=== PATIENT | female | born 1975 | race Caucasian/White ===

== ENCOUNTER 2018-01-11 16:38 | Emergency (ER) | payer OTHER ==
--- OUTSIDE RECORDS SUMMARY | 2018-01-11 16:44 | XMS REPORT ---
:1975 External Reference #:[id number] Author Organization [employer] Address [address] [facility] [place] [address] [place] [address] Phone [phone] Care Team Providers Name Role Phone Priscilla Rose MD Primary Care Physician Unavailable Payers Type Date Identification Numbers Payment Provider Subscriber Commercial Effective: Policy Number: [employer]CP[employer] Radha White 2011 [id number] Group Number: [id number] [address] PayID: [id number] [place] [address] Medigap Part B Expires: 2011 Policy Number: [employer] Insurance Radha Sánchez [id number] Kat PayID: [id number] [address] [place] [address] Problems Date Description Provider Status Onset: 01/13/2016 Anxiety state Delphine Washington M.D. Active Family History Date Family Member(s) Problem(s) Comments Father Tachycardia Father 81 Father Hypertension Father Diabetes Type II Mother Atrial Fibrillation Mother 72 Mother Fibromyalgia Mother Arthritis Mother Hypertension First Sister 39 Social History Type Date Description Comments Marital Status Lives With Spouse Occupation Human Resources ETOH Use Occasionally consumes alcohol Smoking Patient has never smoked Allergies, Adverse Reactions, Alerts Date Description Reaction Status Severity Comments 04/05/2017 NKDA active Medications Medication Date Status Form Strength Qnty SIG Indications Ordering Provider B12 10/31 Active once daily Varn, N.P. Tumeric /25 Active Tablets 1 by mouth daily Varn, N.P. Biotin 09/13 Active Tablets 300mcg 14tab 1 tablet s every other Varn, N.P. day Clonazepam 09/02 Active Tablets 0.5mg 20tab 1 by mouth F41.9 s as needed Varn, N.P. twice daily for anxiety Fish Oil Active Capsules DR 1000mg 2 by mouth Unknown /0000 twice a day Vitamin D-3 Active Capsules 5000Unit 1 by mouth Unknown /0000 every day Fluticasone 10/31 Hx Suspension 50mcg/Act 16uni 1 spray in J30.9 Jazmine ts each Varn, N.P. - nostril 12/14 once daily Azithromycin 03/23 Hx Tablets 250mg 6tabs 2 tabs by J01.90 Garcia mouth every Paula, NEUROLOGICAL PHYSIOTHERAPIST - day x1 day, 03/28 1 tab mouth every day x 4 days Fluconazole 03/23 Hx Tablets 150mg 2tabs one by J01.90 Garcia mouth may Paula, NEUROLOGICAL PHYSIOTHERAPIST - repeat in 3 03/28 days needed Fluticasone 03/23 Hx Suspension 50mcg/Act 16gm 2 sprays J01.90 Garcia Propionate each Paula, NEUROLOGICAL PHYSIOTHERAPIST - nostril qd. 10/31 x 2 weeks Benzonatate 03/23 Hx Capsules 200mg 30cap one by J01.90 Garcia s mouth three Paula, NEUROLOGICAL PHYSIOTHERAPIST - times daily 03/31 as needed for cough Fluconazole 11/25 Hx Tablets 150mg 2tabs one by B37.3 mouth may Varn, N.P. - repeat in 3 03/23 days needed Lotrisone 11/25 Hx Cream 1-0.05% 15gm apply B37.3 externally Varn, N.P. - bid-tid 03/23 Azithromycin 09/02 Hx Tablets 250mg 6tabs two tabs H66.92 day one, Varn, N.P. - one daily 09/12 till Fluconazole 09/02 Hx Tablets 100mg 3tabs 1 tablet H66.92 every 3 Varn, N.P. - days for 3 11/25 doses /2016 No Active 05/12 Hx Unknown Medications /2015 - 09/02 Azithromycin 05/02 Hx Tablets 250mg 6tabs two tabs J01.00 day one, Varn, N.P. - one daily 05/12 till Fluticasone 05/02 Hx Suspension 50mcg/Act 9.900 2 sprays J01.00 Propionate ml each Varn, N.P. - nostril 05/12 daily needed Fluconazole 05/02 Hx Tablets 150mg 3tabs one by J01.00 mouth may Varn, N.P. - repeat in 3 05/08 days needed No Active 09/20 Hx Unknown Medications /2015 - 05/02 Azithromycin 09/15 Hx Tablets 250mg 6tabs 2 tabs by J02.9 mouth every Paula, NEUROLOGICAL PHYSIOTHERAPIST - day x1 day, 09/20 1 tab by mouth every day x 4 days No Active 07/23 Hx Unknown Medications /2015 - 09/15 Azithromycin 04/15 Hx Tablets 250mg 6tabs two tabs J01.20 day one, Varn, N.P. - one daily 04/25 till Fluticasone 04/15 Hx Suspension 50mcg/Act 16uni 2 sprays J01.20 Jazmine Propionate ts each Varn, N.P. - nostril 04/29 daily needed Escitalopram 04/15 Hx Tablets 10mg 30tab 1 by mouth F41.9 Oxalate s every day Varn, N.P. - 07/23 Fluticasone 10/20 Hx Suspension 50mcg/Act 16uni 2 sprays 381.81 Jazmine Propionate ts each Varn, N.P. - nostril 04/15 daily needed Azithromycin 10/20 Hx Tablets 250mg 6tabs two tabs 461.9 day one, Varn, N.P. - one daily 10/30 till Metaxalone 04/08 Hx Tablets 800mg 30tab take 1 723.1 s tablet 3 Varn, N.P. - times a day 07/31 as needed No Active 11/02 Hx Unknown Medications /2012 - 11/02 Hydrocortisone 11/02 Hx Cream 2.5% 30gm apply to 782.1 affected Cotton, - area twice M.D. 12/19 Guaifenesin ac 06/01 Hx Syrup 100-10mg/ 100cc 1 tsp by 786.2 5ML mouth every Felicia, - day every M.D., FACP 11/02 night needed Flovent HFA 06/01 Hx Aerosol 44mcg/Act 1unit 2 puffs 786.2 s twice daily Felicia, - for 10 days M.D., FACP 11/02 Alprazolam 03/29 Hx Tablets 0.25mg 6tabs one by mouth up to Felicia, - three times M.D., FACP 06/01 daily needed for anxiety Zithromax Z-Porter 07/13 Hx Tablets 250mg 1Pack two po initially Felicia, - then one po M.D., FACP 07/23 Nasonex 07/05 Hx Suspension 50mcg/Act 1unit 1 spray s each Felicia, - nostril M.D., FACP 02/22 Robitussin ac 07/05 Hx Solution 4Oz 1-2 tsp at bedtime as Felicia, - needed M.D., FACP 02/22 Vesicare Hx Tablets 5mg 90tab 1 tablet by Unknown /0000 s mouth daily - 02/22 Claritin-D Hx Capsules 10mg 30cap 1 tablet Unknown /0000 s daily prn - 10/20 Vesicare 0000 Hx Tablets 5mg 1 by mouth Unknown /0000 every day - 12/30 Juice Plus Hx Liquid Unknown / - 10/31 Immunizations CPT Code Status Date Vaccine Lot # [id number] Given 03/25/2014 Fluvirin Im 3Yrs And Older Vital Signs Date Vital Result Comment 12/15/2017 Height 64 inches 5'4" Weight 138.00 lb Heart Rate 73 /min BP Systolic Sitting 123 mmHg BP Diastolic Sitting 81 mmHg O2 % BldC Oximetry 100 % BMI (Body Mass Index) 23.7 kg/m2 10/31/2017 Weight 144.00 lb Heart Rate 81 /min BP Systolic 124 mmHg BP Diastolic 80 mmHg Body Temperature 98.3 F O2 % BldC Oximetry 99 % 09/13/2017 Height 64 inches 5'4" Weight 151.50 lb Heart Rate 74 /min BP Systolic 108 mmHg BP Diastolic 78 mmHg Body Temperature 99.0 F O2 % BldC Oximetry 99 % BMI (Body Mass Index) 26.0 kg/m2 Waist Circumference 30.5 08/09/2017 Weight 153.25 lb Heart Rate 77 /min BP Systolic 128 mmHg BP Diastolic 80 mmHg Body Temperature 99.3 F O2 % BldC Oximetry 98 % 04/05/2017 Height 64 inches 5'4" Weight 149.00 lb Heart Rate 68 /min Respiratory Rate 14 /min Body Temperature 99.0 F Pain Level 4 BMI (Body Mass Index) 25.6 kg/m2 03/23/2017 Weight 152.50 lb Heart Rate 75 /min BP Systolic Sitting 124 mmHg BP Diastolic Sitting 92 mmHg Body Temperature 97.6 F O2 % BldC Oximetry 99 % 11/25/2016 Weight 145.50 lb Heart Rate 72 /min BP Systolic 108 mmHg BP Diastolic 68 mmHg Body Temperature 98.8 F O2 % BldC Oximetry 99 % 09/02/2016 Weight 148.50 lb Heart Rate 82 /min BP Systolic 124 mmHg BP Diastolic 78 mmHg Body Temperature 98.2 F O2 % BldC Oximetry 99 % 05/02/2016 Height 63.5 inches 5'3.50" Weight 155.00 lb Heart Rate 79 /min BP Systolic 110 mmHg BP Diastolic 74 mmHg Body Temperature 99.2 F O2 % BldC Oximetry 98 % BMI (Body Mass Index) 27.0 kg/m2 01/13/2016 Height 63.5 inches 5'3.50" Weight 149.00 lb Heart Rate 68 /min BP Systolic Sitting 112 mmHg BP Diastolic Sitting 76 mmHg Body Temperature 98.0 F O2 % BldC Oximetry 98 % BMI (Body Mass Index) 26.0 kg/m2 12/17/2015 Weight 147.50 lb Heart Rate 70 /min BP Systolic Sitting 130 mmHg BP Diastolic Sitting 94 mmHg Body Temperature 98.2 F O2 % BldC Oximetry 98 % 10/30/2015 Weight 151.00 lb Heart Rate 69 /min BP Systolic Sitting 136 mmHg BP Diastolic Sitting 82 mmHg Body Temperature 99.1 F O2 % BldC Oximetry 98 % 09/16/2015 Weight 154.50 lb Heart Rate 78 /min BP Systolic Sitting 122 mmHg BP Diastolic Sitting 84 mmHg Body Temperature 97.8 F O2 % BldC Oximetry 98 % 07/24/2015 Weight 157.00 lb Heart Rate 76 /min BP Systolic Sitting 122 mmHg BP Diastolic Sitting 84 mmHg Respiratory Rate 15 /min Body Temperature 98.9 F O2 % BldC Oximetry 98 % 04/15/2015 Heart Rate 76 /min BP Systolic Sitting 123 mmHg BP Diastolic Sitting 80 mmHg Body Temperature 99.3 F O2 % BldC Oximetry 98 % 10/20/2014 Height 63.75 inches 5'3.75" Weight 151.00 lb Heart Rate 79 /min BP Systolic 121 mmHg BP Diastolic 87 mmHg Body Temperature 99.2 F BMI (Body Mass Index) 26.1 kg/m2 07/31/2014 Height 63.75 inches 5'3.75" Weight 160.25 lb Heart Rate 67 /min BP Systolic Sitting 118 mmHg BP Diastolic Sitting 84 mmHg O2 % BldC Oximetry 98 % BMI (Body Mass Index) 27.7 kg/m2 04/08/2013 Weight 148.25 lb Heart Rate 60 /min BP Systolic 110 mmHg BP Diastolic 72 mmHg Body Temperature 97.9 F 12/19/2012 Height 64 inches 5'4" Weight 156.00 lb Heart Rate 80 /min BP Systolic Sitting 136 mmHg BP Diastolic Sitting 86 mmHg BMI (Body Mass Index) 26.8 kg/m2 11/02/2012 Weight 158.00 lb Heart Rate 82 /min BP Systolic Sitting 110 mmHg BP Diastolic Sitting 72 mmHg Body Temperature 98.6 F 06/01/2011 Height 63.50 inches 5'3.50" Weight 143.00 lb Heart Rate 84 /min BP Systolic Sitting 118 mmHg BP Diastolic Sitting 84 mmHg Body Temperature 98.9 F BMI (Body Mass Index) 24.9 kg/m2 02/22/2011 Height 63.50 inches 5'3.50" Weight 138.00 lb BP Systolic Sitting 108 mmHg L BP Diastolic Sitting 62 mmHg L Body Temperature 98.2 F BMI (Body Mass Index) 24.1 kg/m2 07/05/2010 Weight 143.00 lb Heart Rate 68 /min BP Systolic 120 mmHg BP Diastolic 80 mmHg Body Temperature 98.3 F Results Test Date Test Result H/L Range Note Laboratory test finding 10/06/2017 Cytology SEE RESULT BELOW 1 Lipid Profile 09/11/2017 Triglycerides 53 mg/dL 2 (Trig/Chol/HDL) Cholesterol 166 mg/dL 3 HDL Cholesterol 67.8 mg/dL 4 LDL Cholesterol 88 mg/dL 5 Laboratory test finding 09/11/2017 Glucose 83 mg/dL 70-100 6 Laboratory test finding 01/13/2016 Vitamin D Total 25(Oh) 31.6 ng/mL 30- 50 Comp Metabolic Panel 01/13/2016 Sodium 135 mmol/L 133-145 Potassium 4.9 mmol/L 3.5-5.0 Chloride 101 mmol/L 101-111 Co2 Carbon Dioxide 27 mmol/L 22-32 Anion Gap 7 mmol/L 2-11 Glucose 78 mg/dL 70-100 Blood Urea Nitrogen 15 mg/dL 6-24 Creatinine 0.80 mg/dL 0.51-0.95 BUN/Creatinine Ratio 18.8 8-20 Calcium 9.6 mg/dL 8.6-10.3 Total Protein 7.1 g/dL 6.4-8.9 Albumin 4.2 g/dL 3.2-5.2 Globulin 2.9 g/dL 2-4 Albumin/Globulin Ratio 1.4 1-3 Total Bilirubin 0.60 mg/dL 0.2-1.0 Alkaline Phosphatase 48 U/L 34-104 Alt 7 U/L 7-52 Ast 14 U/L 13-39 Egfr Non- 79.9 >60 Egfr 102.7 >60 7 Laboratory test finding 01/07/2016 Glucose 81 mg/dL 70-100 8 Lipid Profile (Trig/Chol/HDL) 01/07/2016 Triglycerides 50 mg/dL 9 Cholesterol 158 mg/dL 10 HDL Cholesterol 70.0 mg/dL 11 LDL Cholesterol 78 mg/dL 12 CBC Auto Diff 12/17/2015 White Blood Count 7.6 10^3/uL 3.5-10.8 Red Blood Count 5.19 10^6/uL 4.0-5.4 Hemoglobin 14.2 g/dL 12.0-16.0 Hematocrit 44 % 35-47 Mean Corpuscular Volume 84 fL 80-97 Mean Corpuscular Hemoglobin 27 pg 27-31 Mean Corpuscular HGB Conc 33 g/dL 31-36 Red Cell Distribution Width 14 % 10.5-15 Platelet Count 230 10^3/uL 150-450 Mean Platelet Volume 10 um3 7.4-10.4 Abs Neutrophils 4.0 10^3/uL 1.5-7.7 Abs Lymphocytes 2.6 10^3/uL 1.0-4.8 Abs Monocytes 0.7 10^3/uL 0-0.8 Abs Eosinophils 0.2 10^3/uL 0-0.6 Abs Basophils 0.1 10^3/uL 0-0.2 Abs Nucleated RBC 0.02 10^3/uL Granulocyte % 53.3 % 38-83 Lymphocyte % 34.0 % 25-47 Monocyte % 9.1 % High 1-9 Eosinophil % 2.8 % 0-6 Basophil % 0.8 % 0-2 Nucleated Red Blood Cells % 0.3 Ua Routine 10/30/2015 Ua Specific [place] 1.015 Ua PH 5 Ua Color yellow Ua Appera clear Ua WBC ++ Ua Protein neg Ua Glucose neg Ua Ketones neg Ua Bilirubin neg Ua Urobilinogen normal Ua Nitrite neg Ua Occult Blood neg Laboratory test 09/16/2015 Culture Throat SEE RESULT BELOW 13 finding Laboratory test 07/31/2015 Prolactin 6.2 ng/mL 1.0-25.0 14 finding Thyroid Panel 07/31/2015 Free T4 (Free 0.93 ng/dL 0.61-1.12 15 Thyroxine) Thyroxine 8.60 ?g/dL 6.09-12.23 16 TSH (Thyroid Stim Horm) 0.98 ?IU/mL 0.34-5.60 17 Urine Culture And Sensitivities 07/31/2014 Urine Culture (SEE NOTE) 18 Ua Routine 07/31/2014 Ua Specific [place] 1.010 Ua PH 5 Ua Color yellow Ua Appera clear Ua WBC trace Ua Protein neg Ua Glucose neg Ua Ketones trace Ua Bilirubin neg Ua Urobilinogen norm Ua Nitrite neg Ua Occult Blood neg Laboratory test finding 07/25/2014 Glucose 80 mg/dL 70-100 Lipid Profile (Trig/Chol/HDL) 07/25/2014 Triglycerides 51 mg/dL 19 Cholesterol 159 mg/dL 20 HDL Cholesterol 65.0 mg/dL 21 LDL Cholesterol 84 mg/dL 22 Laboratory test finding 12/13/2012 Glucose 84 mg/dL 70-100 Lipid Profile (Trig/Chol/HDL) 12/13/2012 Triglycerides 52 mg/dL 40-200 Cholesterol 166 mg/dL Less than 200 HDL Cholesterol 74 mg/dL High 40-60 23 Cholesterol/HDL Ratio 2.2 Average 1-4.44 LDL Cholesterol 81.6 Less Than 100 24 1 SEE RESULT BELOW Name: RADHA WHITE : [address]: Viri De La Cruz MD Acct: [id number] Unit: [id number] AGE: 42 Location: [facility] Re10/06/17 SEX: F Status: REG REF SPEC: [id number] CHARLINE: 10/06/170944 [facility] DR: Viri De La Cruz MD REQ: [id number] RECD: 10/06/17 STATUS: AYSHA ARRIAGA DR: Jazmine Oliveira NEUROLOGICAL PHYSIOTHERAPIST _ ORDERED: TP IMAGE ANALYS, HPV/Thin Prep COMMENTS: [id number] Negative for Intraepithelial lesion or Malignancy A. Ectocervical/Endocervical Specimen Adequacy: Satisfactory of evaluation Transformation zone component identified Patient Information: HPV: High risk HPV RNA testing regardless of pap results. Actual Specimen Date: 10/06/17 Last Menstrual Date: 09/25/17 Date of Last Specimen: 08/18/16 Date Time Test Result Flag (u) Normal Range 10/06/17 0944 @ HPV RNA Negative Negative @ @ The high-risk HPV types detected by the assay include: 16, @ 18, 31, 33, 35, 39, 45, 51, 52, 56, 58, 59, 66, and 68. Signed by and Reported on: SANDY Gamble(ASC) [id number] This Pap test was evaluated with the assistance of the [employer] Test Imaging System. Due to cytologic findings at the printer machine microscope, comprehensive manual rescreening by a Supervisor Photoengraving may be required. The Pap Smear is a screening test designed to aid in the detection of premalignant and malignant conditions of the uterine cervix. It is not a diagnostic procedure and should not be used as the sole means of detecting cervical cancer. Both false- positive and false- negative reports do occur. Depending on your risk status, a Pap smear should be obtained and evaluated every 1-3 years. END OF REPORT DEPARTMENT OF PATHOLOGY, [address] [place] [address] Gm Adame M.D. Director [facility] # [id number] 2 Desirable: <150 Borderline High: 150-199 High: 200-499 Very High: >500 3 Desirable: <200 Borderline High: 200-239 High: >239 4 Low: <40 Desirable: 40-60 High: >60 5 Desirable: <100 Near Optimal: 100-129 Borderline High: 130-159 High: 160-189 Very High: >189 6 FASTING 10 HOUR 7 Because ethnic data is not always readily available, this report includes an eGFR for both -Americans and non- Americans. The National Kidney Disease Education Program (NKDEP) does not endorse the use of the MDRD equation for patients that are not between the ages of 18 and 70, are , have extremes of body size, muscle mass, or nutritional status, or are non- or non-. According to the National Kidney Foundation, irrespective of diagnosis, the stage of the disease is based on the level of kidney function: Stage Description GFR(mL/min/1.73 m(2)) 1 Kidney damage with normal or decreased GFR 90 2 Kidney damage with mild decrease in GFR 60-89 3 Moderate decrease in GFR 30-59 4 Severe decrease in GFR 15-29 5 Kidney failure <15 (or dialysis) 8 FASTING 9 Desirable <150 Borderline high 150-199 High 200-499 Very High >500 10 Desirable <200 Borderline high 200-239 High >239 11 Low <40 Desirable: 40-60 High: >60 12 Desirable: <100 mg/dL Near Optimal: 100-129 mg/dL Borderline High: 130-159 mg/dL High: 160-189 mg/dL Very High: >189 mg/dL 13 SEE RESULT BELOW Name: KATRADHA Sánchez : [address]: Garcia Mitchell NP Acct: [id number] Unit: [id number] AGE: 40 Location: [facility] Re09/16/15 SEX: F Status: REG REF SPEC: [id number] CHARLINE: 09/16/15-[address]: Garcia Mitchell NP REQ: [id number] RECD: 09/16/15 STATUS: COMP _ SOURCE: THROAT SPDESC: ORDERED: Throat Culture COMMENTS: [id number] Procedure Result Reported Site Throat Culture Final 09/18/15- 1259 ML Organism 1 NORMAL SOPHIA Quantity 3+ Throat cultures are clinically indicated to detect the presence of group A strep, arcanobacterium and yeast. In certain cases, predominating organisms will be reported. * ML - MAIN LAB ([facility]) . END OF REPORT * ML=Testing performed at Main Lab DEPARTMENT OF PATHOLOGY, [address] [place] [address] Gm Adame M.D. Director [facility] # [id number] 14 FASTING 15 FASTING 16 FASTING 17 FASTING 18 RUN DATE: 08/02/14 [facility] LAB LIVE PAGE 1 RUN TIME: [address] [place] [address] Specimen Inquiry Name: KATRADHA Gonzalo : [address]: Delphine Washington MD Acct: [id number] Unit: [id number] AGE: 39 Location: [facility] Re07/31/14 SEX: F Status: REG REF SPEC: [id number] CHARLINE: 07/31/14-[address] [facility] [address]: Delphine Washington MD REQ: [id number] RECD: 07/31/14-1736 STATUS: COMP _ SOURCE: URINE SPDESC: ORDERED: Urine Culture QUERIES: Provider Requisition # [id number] Procedure Result Verified Site Urine Culture Final 08/02/14- 1110 L No Growth Day 2 (<1,000 CFU/mL) END OF REPORT * ML=Testing performed at Main Lab DEPARTMENT OF PATHOLOGY, [address] [place] [address] Gm Adame M.D. Director [facility] # [id number] 19 Desirable <150 Borderline high 150-199 High 200-499 Very High >500 20 Desirable <200 Borderline high 200-239 High >239 21 Low <40 Desirable: 40-60 High: >60 22 Desirable: <100 mg/dL Near Optimal: 100-129 mg/dL Borderline High: 130-159 mg/dL High: 160-189 mg/dL Very High: >189 mg/dL 23 HDL Interpretation: Undesirable: High Risk: Less than 40 mg/dL Desirable: Low Risk: Greater than 60 mg/dL 24 LDL Interpretation: Low Risk Optimal Level: LDL Less than 100 mg/dL Near or Above Optimal: LDL 100-129 mg/dL Borderline High Risk: LDL 130-159 mg/dL High Risk: LDL 160-189 mg/dL Very High Risk: LDL Greater than 189 mg/dL Procedures Date CPT Code Description Status 10/02/2017 Mammogram Completed 09/13/2017 62654 Admin & Interp Of Health Risk Assessment w/ Patient Completed 09/29/2016 Mammogram Completed 10/30/2015 48692 EKG Tracing & Interpretation Completed 07/31/2015 Mammogram Completed 05/22/2015 Diabetic Retinal Eye Exam Completed 12/19/2012 40124 EKG Tracing & Interpretation Completed Encounters Type Date Location Provider CPT E/M Dx Office Visit 10/31/2017 9:20a [facility] Internal Medicine Jazmine Oliveira, N.P. 44005 J30.9 - [place] K62.3 Office Visit 09/13/2017 8:40a [facility] Internal Medicine Jazmine Oliveira, N.P. 84166 Z00.00 - [place] Z12.31 F41.9 Office Visit 08/09/2017 11:40a [facility] Internal Medicine Jazmine Oliveira, N.P. 57983 M25.551 - [place] M54.5 Office Visit 04/05/2017 8:30a [place] [address] S63.635A Of [facility] Office Visit 03/23/2017 2:20p [facility] [place] [address] M79.645 - [place] J01.90 Office Visit 11/25/2016 2:40p [facility] Medicine Jazmine Oliveira, N.P. 69426 F41.9 - [place] R22.2 B37.3 Office Visit 09/02/2016 4:00p [facility] Medicine Jazmine Oliveira, N.P. 99966 R22.2 - [place] F41.9 H66.92 Office Visit 05/02/2016 4:00p [facility] Medicine Jazmine Oliveira, N.P. 11088 J01.00 - [place] Office Visit 01/13/2016 2:00p [facility] Deplhine Washington M.D. 44367 Z00.00 - [place] F41.9 R10.10 K58.0 Office Visit 12/17/2015 9:20a [facility] [place] [address] R07.0 - [place] Office Visit 10/30/2015 4:00p [facility] Lucas Bach M.D. 34895 R07.9 - [place] R39.11 Office Visit 09/16/2015 3:40p [facility] [place] [address] J02.9 - [place] Office Visit 07/24/2015 2:40p [facility] Internal Medicine Jazmine Oliveira, N.P. 83370 O92.6 - [place] Office Visit 04/15/2015 3:20p [facility] Internal Medicine Jazmine Oliveira, N.P. 47171 J01.20 - [place] F41.9 Office Visit 10/20/2014 1:20p [facility] Internal Medicine Jazmine Oliveira, N.P. 04625 381.81 - [place] 461.9 Office Visit 07/31/2014 2:00p [facility] Delphine Washington M.D. 55454 V70.0 - [place] 785.1 788.69 Office Visit 04/08/2013 1:20p [facility] Internal Medicine Jazmine Oliveira, N.P. 12307 723.1 - [place] Office Visit 12/19/2012 2:40p [facility] Cassie Duarte M.D., 62850 V70.0 - [place] FACP V76.10 272.0 785.1 Office Visit 11/02/2012 4:00p [facility] Priscilla Rose, 32266 782.1 - [place] MJed Office Visit 06/01/2011 9:20a [facility] Cassie Duarte M.D., 55268 786.2 - [place] FACP Office Visit 02/22/2011 10:00a DO Not Use Jazmine Tee, N.P. 02595 372.00 [facility] Office Visit 07/05/2010 3:15p DO Not Use Cassie Duarte M.D., 00953 465.9 [facility] FACP 462 Office Visit 12/21/2009 8:45a DO Not Use [facility] Jazmine Varjose g, 72898 787.3 N.P. Office Visit 12/07/2009 11:00a DO Not Use [facility] Jazmine Varn, 84731 787.3 N.P. 780.79 Office Visit 10/06/2009 11:45a DO Not Use Cassie Duarte M.D., 51622 386.11 [facility] FACP Office Visit 09/04/2007 3:00p DO Not Use Jazmine Varn, 22708 727.1 [facility]-Gabriela N.P. 782.0 Plan of Care Future Appointment(s):02/06/2018 9:00 am - Priscilla Rose M.D. at [facility] Internal Medicine - [id number]/29/2019 8:40 am - Jazmine Oliveira N.P. at [facility]12/15/2017 - Priscilla Rose M.D.K62.3 Rectal prolapseComments:Try a glycerine suppositoryTake WwzyCpeS54.9 Anxiety disorder, unspecifiedComments:Take clonazepam 1/4-1/2 daily at bedtime.Follow up:mid Jan
[2018-01-11 16:54] VITALS: BP 123/92
--- NOTE | 2018-01-11 17:17 | UC ---
Complaint Female HPI - HPI Summary HPI Summary: 42 y/o female presents to the urgent care c/o pain w/ urination s/p urologist procedure this past 12/2017 [employer] [employer] in [place]. Pt is mainly here requesting a urine culture that his [employer] ordered. Pt states she has PMHX of bladder infections for the past 4 years and her PCP, GUN and Urologist have been trying Dx her w/o any success. She was sent to this specialist in [place] to r/o Hemorrhagic cystitis or any other abnormality w/ her bladder. He applied Lidocaine and heparin in her bladder. Sicne then she develop the urethral pain w/ lower back pain. She called specialist and was advised to go to [facility] and get a urine culture. However lab sent her here. Pt denies fever, abdominal pain, SOB, chest pain, N/V/D, urinary incontinence. - History Of Current Complaint Chief Complaint: UCGU Stated Complaint: URINALYSIS Time Seen by Provider: 01/11/18 17:06 Hx Obtained From: Patient Hx Last Menstrual Period: [id number] ?: No Onset/Duration: Gradual Onset, Lasting Days - 4 days, Still Present Timing: Constant Severity Initially: Mild Severity Currently: Mild Pain Intensity: 3 Pain Scale Used: 0-10 Numeric Character: Burning Aggravating Factor(s): Urination Associated Signs And Symptoms: Positive: Back Pain - lower back pain. Negative : Fever, Vaginal Bleeding/Discharge, Vaginal Discharge, Genital Swelling, Genital Blisters - Risk Factors Ectopic Risk Factor: Negative Ovarian Torsion Risk Factor: Negative - Allergies/Home Medications Allergies/Adverse Reactions: Allergies Allergy/AdvReac Type Severity Reaction Status Date / Time No Known Allergies Allergy Verified 01/11/18 16:55 Home Medications: Home Medications clonazePAM TAB(*) [Klonopin TAB(*)] 0.25 mg PO TID PRN 01/11/18 [History Confirmed 01/11/18] PMH/Surg Hx/FS Hx/Imm Hx Previously Healthy: Yes Other GI/ History: IBS, rectal prolapse - Surgical History Surgical History: None - Family History Known Family History: Positive: Cardiac Disease, Hypertension, Diabetes - Social History Occupation: Employed Full-time Lives: With Family Alcohol Use: None Substance Use Type: None Smoking Status (MU): Never Smoked Tobacco - Immunization History Most Recent Influenza Vaccination: 2012 Most Recent Tetanus Shot: 09/2013 Most Recent Pneumonia Vaccination: never Review of Systems Constitutional: Negative Skin: Negative Eyes: Negative ENT: Negative Respiratory: Negative Cardiovascular: Negative Gastrointestinal: Negative Genitourinary: Dysuria, Frequency Motor: Negative Neurovascular: Negative Musculoskeletal: Other: - lower back pain Neurological: Negative Psychological: Negative Is Patient Immunocompromised?: No All Other Systems Reviewed And Are Negative: Yes Physical Exam - Summary Physical Exam Summary: VITAL SIGNS: Reviewed. GENERAL: Patient is a well developed and nourished female who is sitting comfortable in the examining table. Patient is not in any acute respiratory distress. HEAD AND FACE: No signs of trauma. No ecchymosis, hematomas or skull depressions. No sinus tenderness. EYES: PERRLA, EOMI x 2, No injected conjunctiva, clear watery eyes, no nystagmus. No photophobia. EARS: Hearing grossly intact. Ear canals and tympanic membranes are within normal limits. MOUTH: pharynx with no erythema, no exudates,no palatal petechiae. no B/L tonsillar enlargement Uvula in midline. NECK: Supple, trachea is midline, no lymphadenopathy, no JVD, no carotid bruit, no c-spine tenderness, neck with full ROM. CHEST: Symmetric, no tenderness at palpation LUNGS: Clear to auscultation bilaterally. No wheezing or crackles. CVS: Regular rate and rhythm, S1 and S2 present, no murmurs or gallops appreciated. ABDOMEN: Soft, non-tender. No signs of distention. No rebound no guarding, and no masses palpated. Bowel sounds are normal. BACK:no scoliosis or lesions, non tender to palpation, No B/L CVA tenderness EXTREMITIES: FROM in all major joints, no edema, no cyanosis or clubbing. NEURO: Alert and oriented x 3. No acute neurological deficits. Speech is normal and follows commands. SKIN: Dry and warm Triage Information Reviewed: Yes Vital Signs: Initial Vital Signs Temp 98.4 F 01/11/18 16:50 Pulse 88 01/11/18 16:50 Resp 16 01/11/18 16:50 BP 123/92 01/11/18 16:50 Pulse Ox 100 01/11/18 16:50 Complaint Female Dx - Course Course Of Treatment: 42 y/o female presents to the urgent care c/o pain w/ urination s/p urologist procedure this past 12/2017 [employer] in [place]. Pt is mainly here requesting a urine culture that his [employer] ordered. Pt states she has PMHX of bladder infections for the past 4 years and her PCP, GUN and Urologist have been trying Dx her w/o any success. She was sent to this specialist in [place] to r/o Hemorrhagic cystitis or any other abnormality w/ her bladder. He applied Lidocaine and heparin in her bladder. Sicne then she develop the urethral pain w/ lower back pain. She called specialist and was advised to go to [facility] and get a urine culture. However lab sent her here. Pt denies fever, abdominal pain, SOB, chest pain, N/V /D, urinary incontinence.Hx obtained. PE: WNL. UA: Positive only for Ketone. Urine culture ordered and sent to lab. Pt will be notified of results. Your BP is elevated today. please decrease salt in your diet, monitor BP and if it continues to be elevated please f/u with your PCP for further management. Pt advised to f/u w/ her [employer] [facility] for further management. Pt understood and agreed w / plan of care. - Differential Dx/Diagnosis Differential Diagnosis/HQI/PQRI: Pelvic Inflammatory Disease, Renal Colic, Ureteral Stone, Urinary Tract Infection, Other - cystitis Provider Diagnoses: 1- Dysuria. 2- Elevated BP w/o Hx of HTN Discharge - Sign-Out/Discharge Documenting (check all that apply): Patient Departure - D/c home All imaging exams completed and their final reports reviewed: No Studies - Discharge Plan Condition: Stable Disposition: HOME Patient Education Materials: Dysuria (ED), Low-Sodium Diet (ED) Referrals: Priscilla Rose MD [Primary Care Provider] - 1 Day Additional Instructions: 1- UA only return positive for ketones. Please increse fluid intake. 2-Urine sent for culture if any abnormality, you will be notified for further treatment. 3 Please f/u w/ your Urologist for further management. 4-Your BP is elevated today. please decrease salt in your diet, monitor BP and if it continues to be elevated please f/u with your PCP for further management - Billing Disposition and Condition Condition: STABLE Disposition: Home
== END 2018-01-11 17:30 | disposition home or self-care (01) ==
LOC: UCEAST 16:38
DX: R30.0 Dysuria (principal); R03.0 Elevated blood-pressure reading, without diagnosis of hypertension
CPT/HCPCS: 81003; 87086; 99211; G0463

== ENCOUNTER 2019-09-08 13:14 | Emergency (ER) | payer OTHER ==
--- NOTE | 2019-09-08 15:16 | UC ---
[facility] HPI HPI Summary: Patient is 44 year old female, who presents today to the urgent care drive through for possible testing for covid19. She reports that she is concerned because she had diarrhea for 3 days which has apparently resolved but she has parents who are high-risk and was not very healthy and that concerns her , wants to be tested. She had been to the grocery store twice in the past 3 weeks. She has used the mask all the time. She has a history of IBS but her diarrhea was different, denies any blood or mucus in stool. Had associated nausea on the first day that has resolved. No vomiting. Her diarrhea is also resolved yesterday. She does report some runny nose and congestion. Denies any fevers but temp at home was 98.9 and 99.5F , she took ibuprofen. Denies any cough chest pain or shortness of breath . No sore throat, runny nose or congestion . [facility] PMH Previously Healthy: Yes Endocrine/Hematology History: Denies: Hx Diabetes, Hx Anemia Cardiovascular History: Denies: Hx Hypertension, Hx Pacemaker/ICD GI History: Reports: Other GI Disorders - IBS Denies: Hx Jaundice History: Reports: Hx Kidney Infection Denies: Hx Renal Disease Sensory History: Denies: Hx Hearing Aid EENT History: Denies: Hx Hearing Problem Psychiatric History: Denies: Hx Panic Disorder - Cancer History Hx Chemotherapy: No Hx Radiation Therapy: No - Surgical History Surgical History: None Infectious Disease History: No - Family History Known Family History: Positive: Cardiac Disease, Hypertension, Diabetes, Other - A.Fib - Social History Alcohol Use: None Substance Use Type: Reports: None Smoking Status (MU): Never Smoked Tobacco [facility] ROS All Other Systems Reviewed And Are Negative: Yes Constitutional: Negative Eyes: Negative Positive: Nasal Discharge - runny nose and congestion Cardiovascular: Negative Respiratory: Negative Negative: Shortness Of Breath, Cough Positive: Diarrhea, Nausea. Negative: Vomiting Genitourinary: Negative Musculoskeletal: Negative Skin: Negative Neurological/Mental Status: Negative Positive: Headache Psychological: Normal [facility] Telehealth Physical Exam: Physical exam summary: To decrease the risk of transmission of possible COVID 19 , this interview was done with telemetry medicine which does limit the physical examination Temp of 99 F Gen.: Alert and oriented, speaking in full sentences Hearing within normal limits Neurologically appears intact, with appropriate mood [facility] Course/Dx Assessment/Plan: Patient has had nausea and diarrhea and mild rhinorrhea . No specific exposure to covid positive person. We discussed that most for symptom Covid 19 infection is cough shortness of breath and congestion and the nausea, vomiting and diarrhea or less common symptoms but can be of presenting complaint . Given her concerns about exposure to her high risk patients, plan to test her for Covid 19. She understands self quarantine measures. I advised her to not use ibuprofen anymore and if she has fever she should take Tylenol. Since her diarrhea has resolved, nothing more needs to be done. She should keep herself hydrated. Covid 19 test was obtained. Patient will follow up with the [facility]. If the patient starts to feel worse-day treatment to report to the emergency department. Provider Diagnoses: Viral diarrhea Telehealth Disposition Provider Recommendation for Treatment: [facility] Telehealth Visit: Patient Consented Verbally to Telehealth Visit Telehealth Patient Statement: The patient should understand that they are communicating with their provider via a secure communication platform and that all the same privacy and confidentiality rules apply. They will also be responsible for copayments or coinsurances that apply to any Telehealth visit. Patient Identifiers: 2 Patient Identifiers Verified for Telehealth Visit Telehealth Visit Start Time: 14:55 Telehealth Visit End Time: 15:07 Telehealth Provider Attestation: The above services were appropriate to provide in a Telehealth setting.
== END 2019-09-08 15:26 | disposition home or self-care (01) ==
LOC: UCEAST 13:14
DX: A08.4 Viral intestinal infection, unspecified (principal); Z20.828 Contact with and (suspected) exposure to other viral communicable diseases
CPT/HCPCS: 87635; 99211; G0463; Q3014